=== PATIENT | female | born 1990 | race Caucasian/White ===

== ENCOUNTER 2016-07-15 12:51 | Emergency (ER) | payer MEDICAID ==
[2016-07-15 13:12] VITALS: TEMP 98.4
--- NOTE | 2016-07-15 13:43 | RAD ---
HISTORY: Palpations COMPARISON: No prior. TECHNIQUE: Chest PA and lateral FINDINGS: LUNGS: No active pulmonary disease. PLEURA: No significant pleural effusion identified. No pneumothorax apparent. CARDIOVASCULAR: Normal. OSSEOUS STRUCTURES: No significant abnormalities. VISUALIZED UPPER ABDOMEN: Normal. OTHER FINDINGS: None. IMPRESSION: No active disease.
[2016-07-15 13:44] LABS: RBC URINE < 1 /hpf (0-3); URINE BILIRUBIN NEGATIVE (NEGATIVE); URINE BLOOD NEGATIVE (NEGATIVE); URINE COLOR Yellow (YELLOW); URINE GLUCOSE (UA) NORMAL (Normal); URINE KETONE NEGATIVE (NEGATIVE); URINE LEUKOCYTE ESTERASE 1+ Leu/uL (Negative); URINE PROTEIN NEGATIVE (NEGATIVE); URINE UROBILINOGEN NORMAL mg/dL (0.2-1.0); WBC URINE 3 /hpf (0-5)
--- NOTE | 2016-07-15 13:52 | C.PDOC ---
History Of Present Illness 26 y/o female presents to the ED with complains of intermittent episodes of palpitations. Pt states her heart feels like it's pounding fast with dizziness, lightheadedness, SOB, and reflux associated. Symptoms are spontaneous, lasting a few minutes and then resolving. She also reports intermittent episodes of sharp stabbing chest pain. 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 Pt denies recent travel, leg pain or swelling, fever, vomiting or any other complaints. She has no cough or URI symptoms. She denies any cocaine or heroin use. Time Seen by Provider: 07/15/16 13:14 Chief Complaint (Nursing): Chest Pain History Per: Patient History/Exam Limitations: no limitations Onset/Duration Of Symptoms: Days, Intermittent Episodes Current Symptoms Are (Timing): Gone Severity: Moderate Exacerbating Factors: None Alleviating Factors: None Recent travel outside of the [place]: No Past Medical History Reviewed: Historical Data, Nursing Documentation, Vital Signs Vital Signs: Last Vital Signs Temp 98.4 F 07/15/16 12:58 Pulse 96 H 07/15/16 12:58 Resp 18 07/15/16 12:58 BP 128/73 07/15/16 12:58 Pulse Ox 99 07/15/16 14:31 - Medical History PMH: Asthma Family History: States: Unknown Family Hx - Social History Hx Alcohol Use: No Hx Substance Use: No - Immunization History Hx Influenza Vaccination: No Review Of Systems Except As Marked, All Systems Reviewed And Found Negative. Constitutional: Negative for: Fever Cardiovascular: Positive for: Chest Pain, Palpitations Respiratory: Positive for: Shortness of Breath. Negative for: Cough Gastrointestinal: Negative for: Vomiting Neurological: Positive for: Dizziness Physical Exam - Physical Exam Appears: Non-toxic, No Acute Distress Skin: Warm, Dry, No Rash Head: Atraumatic, Normacephalic Oral Mucosa: Moist Neck: Normal ROM, Supple Chest: Symmetrical Cardiovascular: Rhythm Regular, No Murmur Respiratory: Normal Breath Sounds, No Rales, No Rhonchi, No Wheezing Gastrointestinal/Abdominal: Normal Exam, Soft, No Tenderness Extremity: Normal ROM Extremity: Bilateral: Atraumatic Neurological/Psych: Oriented x3 ED Course And Treatment - Laboratory Results Result Diagrams: 07/15/16 14:09 07/15/16 14:09 Lab Interpretation: Normal ECG: Interpreted By Me ECG Rhythm: Sinus Tachycardia ECG Interpretation: No Acute Changes Rate From EC O2 Sat by Pulse Oximetry: 99 (on room air) Pulse Ox Interpretation: Normal - Radiology CXR: Viewed By Me, Read By Radiologist CXR Interpretation: Yes: No Acute Disease Progress Note: Plan: EKG, labs, IV fluids Reevaluation Time: 15:25 Reassessment Condition: Improved (Patient remains asymptomatic in the ED.) Disposition - Disposition Referrals: [facility] [Outside] Disposition: HOME/ ROUTINE Disposition Time: 15:28 Condition: IMPROVED Instructions: Palpitations (ED) - Clinical Impression Clinical Impression: Palpitations - Scribe Statement The provider has reviewed the documentation as recorded by the Patrick Kee Provider Attestation: All medical record entries made by the Kishoribe were at my direction and personally dictated by me. I have reviewed the chart and agree that the record accurately reflects my personal performance of the history, physical exam, medical decision making, and the department course for this patient. I have also personally directed, reviewed, and agree with the discharge instructions and disposition.
[2016-07-15 14:15] LABS: BASO % 0.2 % (0.0-2.0); EOS % 0.6 % (0.0-4.0); HEMATOCRIT 37.1 % (34.0-47.0); LYMPH # 1.3 K/uL (1.0-4.3); LYMPH % 17.8 % (20.0-40.0); MEAN CELL VOLUME 97.4 fL (81.0-99.0); MEAN CORPUSCULAR HEMOGLOBIN 32.2 pg (27.0-31.0); MEAN PLATELET VOLUME 8.3 fL (7.2-11.7); MONO # 0.6 K/uL (0.0-0.8); MONO % 8.5 % (0.0-10.0); RED CELL DISTRIBUTION WIDTH 13.5 % (11.5-14.5); WHITE BLOOD COUNT 7.2 K/uL (4.8-10.8)
[2016-07-15 14:27] LABS: POTASSIUM 3.7 mmol/L (3.6-5.2); SODIUM 143 mmol/L (132-148)
[2016-07-15 14:29] LABS: ALB/GLOB RATIO 1.4 (1.0-2.1); ALKALINE PHOSPHATASE 64 U/L (38-126); AST/SGOT 31 U/L (14-36); BILIRUBIN,TOTAL 0.2 mg/dL (0.2-1.3); CARBON DIOXIDE 26 mmol/L (22-30); GFR AFRICAN-AMERICAN > 60; TOTAL PROTEIN 7.3 g/dL (6.3-8.3)
[2016-07-15 14:30] LABS: ALT/SGPT 31 U/L (9-52); BLOOD UREA NITROGEN 11 mg/dL (7-17); CALCIUM 8.8 mg/dl (8.6-10.4); GLUCOSE,RANDOM 86 mg/dL (65-105)
[2016-07-15 14:31] LABS: CHLORIDE 105 mmol/L (98-107)
[2016-07-15 14:44] LABS: T3 UPTAKE 27.9 % (23.0-41.0); T4 8.44 ug/dL (5.5-11.0)
[2016-07-15 15:53] VITALS: BP 159/99; PULSE 76; RESP 16; O2SAT 98
--- NOTE | 2016-07-27 23:19 | CARD ---
APPROVED REPORT EKG Measurement Heart [id number] <Conclusion> Sinus tachycardia Otherwise normal ECG
== END 2016-07-15 15:52 | disposition home or self-care (01) ==
LOC: C.ER 12:51
DX: R00.2 Palpitations (principal)

== ENCOUNTER 2017-04-24 10:50 | Emergency (ER) | payer MEDICAID ==
[2017-04-24 11:04] VITALS: BP 117/83; PULSE 74; RESP 18; TEMP 98.3; O2SAT 99
--- NOTE | 2017-04-24 11:47 | C.PDOC ---
Time Seen by Provider: 04/24/17 11:25 Chief Complaint (Nursing): Cough, Cold, Congestion History Per: Patient Onset/Duration Of Symptoms: Days (3) Current Symptoms Are (Timing): Still Present Location Of Pain: Ear(s) Associated Symptoms: Fever, Sore Throat, Cough, Sputum, Nasal Congestion, Nausea Ear Symptoms: Left: Ear Pain Past Medical History Reviewed: Historical Data, Nursing Documentation, Vital Signs Vital Signs: Last Vital Signs Temp 98.3 F 04/24/17 11:03 Pulse 74 04/24/17 11:03 Resp 18 04/24/17 11:03 BP 117/83 04/24/17 11:03 Pulse Ox 99 04/24/17 11:03 - Medical History PMH: Asthma Family History: States: Unknown Family Hx - Social History Hx Tobacco Use: Yes Hx Alcohol Use: No Hx Substance Use: No - Immunization History Hx Influenza Vaccination: No Review Of Systems Except As Marked, All Systems Reviewed And Found Negative. Constitutional: Positive for: Fever, Malaise ENT: Positive for: Ear Pain (left), Nose Congestion, Throat Pain. Negative for : Ear Discharge Cardiovascular: Negative for: Chest Pain Respiratory: Positive for: Cough. Negative for: Shortness of Breath Gastrointestinal: Negative for: Vomiting, Abdominal Pain, Diarrhea Musculoskeletal: Negative for: Neck Pain, Back Pain Skin: Negative for: Rash Neurological: Negative for: Weakness, Numbness, Seizures, Altered Mental Status Physical Exam - Physical Exam Appears: Non-toxic, No Acute Distress Skin: Normal Color, Warm, Dry, No Rash Head: Atraumatic, Normacephalic Eye(s): bilateral: Normal Inspection, PERRL, EOMI Ear(s): Left: TM Erythema, TM Dull, Loss Of TM Landmarks, Right: Normal Oral Mucosa: Moist, No Drooling, No Trismus Throat: Erythema, No Exudate, No Drooling, No Mass Neck: Normal ROM, Supple Cardiovascular: Rhythm Regular Respiratory: Normal Breath Sounds, No Accessory Muscle Use Gastrointestinal/Abdominal: Soft, No Tenderness Back: No CVA Tenderness Extremity: Normal ROM Neurological/Psych: Oriented x3, Normal Speech, Normal Motor, Normal Sensation ED Course And Treatment O2 Sat by Pulse Oximetry: 99 Pulse Ox Interpretation: Normal Disposition Counseled Patient/Family Regarding: Diagnosis, Need For Followup, Rx Given, Smoking Cessation - Disposition Disposition: HOME/ ROUTINE Disposition Time: 11:47 Condition: STABLE Additional Instructions: Follow up with your doctor. Return to the ER if you develop high fever, shortness of breath, worsening of symptoms or if you have any other concerns. Prescriptions: Azithromycin [Zithromax] 1 dose PO DAILY #1 pkt Instructions: Cold Symptoms (ED), Otitis Media (ED) Forms: [employer] (Armenian) - Clinical Impression Clinical Impression: Upper respiratory infection, Otitis media of left ear
== END 2017-04-24 12:00 | disposition home or self-care (01) ==
LOC: C.ER 10:50
DX: H66.92 Otitis media, unspecified, left ear (principal); J06.9 Acute upper respiratory infection, unspecified; Z72.0 Tobacco use

== ENCOUNTER 2017-05-31 00:01 | Emergency (ER) | payer MEDICAID ==
--- NOTE | 2017-05-31 00:21 | C.PDOC ---
History Of Present Illness Pt felt lower lip swelling yesterday. took a benadryl and xyzal. swelling resolved. Now upper lip swelled, and pt took 2 benadryl , but no effect. Speaking in complete sentences, tolerating own secretions, no wheezing. Able to eat and drink. Unknown etiology Time Seen by Provider: 05/31/17 00:16 Chief Complaint (Nursing): Allergic Reaction History Per: Patient History/Exam Limitations: no limitations Onset/Duration Of Symptoms: Days Current Symptoms Are (Timing): Still Present Context: Other Possible Cause: Unknown Associated Symptoms: Swelling. denies: Trouble Swallowing, Dizziness, Chest Pain Home/EMS Treatment: Benadryl, Other (xyzal) Severity: Moderate Pain Scale Rating Of: 4 Recent travel outside of the [place]: No Additional History Per: Family Past Medical History Reviewed: Historical Data, Nursing Documentation, Vital Signs Vital Signs: Last Vital Signs Temp 98.5 F 05/31/17 04:03 Pulse 80 05/31/17 04:03 Resp 16 05/31/17 04:03 BP 104/34 L 05/31/17 04:03 Pulse Ox 97 05/31/17 06:01 - Medical History PMH: Asthma Family History: States: No Known Family Hx - Social History Hx Tobacco Use: Yes Hx Alcohol Use: No Hx Substance Use: No - Immunization History Hx Influenza Vaccination: No Review Of Systems Constitutional: Negative for: Fever, Chills Eyes: Negative for: Redness ENT: Positive for: Other (upper lip swelling). Negative for: Throat Pain Cardiovascular: Negative for: Chest Pain Respiratory: Negative for: Cough, Shortness of Breath, Wheezing Gastrointestinal: Negative for: Abdominal Pain Skin: Negative for: Rash, Bruising Neurological: Negative for: Weakness Psych: Negative for: Anxiety Physical Exam - Physical Exam Appears: Non-toxic Skin: Warm, Dry Head: Normacephalic Eye(s): bilateral: Normal Inspection Oral Mucosa: Moist Tongue: Normal Appearing, No Swelling Lips: Swelling (upper lip) Teeth: Normal Dentition Gingiva: Normal Appearing Throat: No Erythema, No Exudate, No Drooling Neck: Supple Chest: Symmetrical Cardiovascular: Rhythm Regular Respiratory: No Decreased Breath Sounds, No Rales, No Rhonchi, No Wheezing Gastrointestinal/Abdominal: Soft, No Tenderness, No Distention Extremity: Normal ROM Neurological/Psych: Oriented x3, Normal Speech, Normal Cognition ED Course And Treatment O2 Sat by Pulse Oximetry: 97 Pulse Ox Interpretation: Normal Progress Note: 1:19 am pt's upper lip seems slightly more swollen, even after solumedrol, pepcid and benadryl. continuing to speak in complete sentences, and not SOB or wheezing. 3:50 A lip still swollen, airway clear Critical Care Time - Critical Care Note Total Time (in mins): 30 Documented critical care: time excludes all time spent performing seperately billable procedures. Disposition Counseled Patient/Family Regarding: Studies Performed, Diagnosis - Disposition Disposition Time: 00:21 Condition: FAIR Forms: [facility] (Slovak) - Clinical Impression Clinical Impression: Allergic urticaria, Angioedema Physician Patient Turnover Patient Signed Over To: Shivani Ann Handoff Comments: pending re-eval and disposition
[2017-05-31] MEDS ORDERED: MethylPREDNISolone 40 mg Vial IVP STA (00:22)
[2017-05-31] MEDS ORDERED: DiphenhydrAMINE 50 mg/ml Inj IVP STA (00:25)
[2017-05-31] MEDS ORDERED: Sodium Chloride 0.9% 1,000 ML IV ONE (00:25)
[2017-05-31] MEDS ORDERED: Sodium Chloride 0.9% 1,000 ML ONE (00:31)
[2017-05-31] MEDS ORDERED: DiphenhydrAMINE 50 mg/ml Inj ONE (00:32)
[2017-05-31 08:15] VITALS: O2SAT 99
[2017-05-31 09:20] VITALS: BP 112/69; PULSE 70; RESP 18; TEMP 98.4
== END 2017-05-31 09:10 | disposition home or self-care (01) ==
LOC: C.ER 00:01
DX: L50.0 Allergic urticaria (principal)
CPT/HCPCS: 96361; 96374; 96375; 96376; 99285; J1200; J2920; J2930; J7040

== ENCOUNTER 2017-12-15 09:56 | Emergency (ER) | payer MEDICAID ==
[2017-12-15 10:05] VITALS: BMI 26.4
[2017-12-15 10:07] VITALS: TEMP 98.2; O2SAT 100
--- NOTE | 2017-12-15 10:32 | C.PDOC ---
History Of Present Illness 27 year old female presents to ED for evaluation of worsening, persistent headaches lasting 1 day s/p injury. Patient states he has been feeling off after toolbox accidentally fell onto the top of her head. Reports no LOC, initially headache was localized to the top of the head, took Tylenol with improvement. However, woke up this morning and headache was intensified with neck tightness. Denies other associated injures, fever, nausea, vomiting, and other associated symptoms. S/P HEAD INJURY YEST CO PERSIST COUGHLIN "FEELING OFF"/ PS TOOLBOX ACCID FELL ONTO TOP OF HEAD. NO LOC. +INITIAL COUGHLIN TO TOP, RELIEVED W TYLENOL. TODAY AWOKE W WORSE COUGHLIN, +NECK TIGHTNESS. NO NAUSEA. DENIES OTHER ASSOC INJ OR SX EXAM MILD DIST NONTOXIC HEENT NO SWELL, NO DEFORM, GEN TEND TOP OF SCALP; SKIN INTACT NECK SUPPLE NO FOCAL BONY TEND NEURO INTACT Time Seen by Provider: 12/15/17 10:29 Chief Complaint (Nursing): Headache History Per: Patient History/Exam Limitations: no limitations Onset/Duration Of Symptoms: Days Past Medical History Reviewed: Historical Data, Nursing Documentation, Vital Signs Vital Signs: Last Vital Signs Temp 98.2 F 12/15/17 10:05 Pulse 55 L 12/15/17 12:32 Resp 18 12/15/17 12:32 BP 144/73 12/15/17 12:32 Pulse Ox 100 12/15/17 13:55 - Medical History PMH: Asthma Family History: States: Unknown Family Hx - Social History Hx Tobacco Use: Yes Hx Alcohol Use: No Hx Substance Use: No - Immunization History Hx Influenza Vaccination: No Review Of Systems Except As Marked, All Systems Reviewed And Found Negative. (worsening) Constitutional: Positive for: Other. Negative for: Fever, Chills Gastrointestinal: Negative for: Nausea, Vomiting Musculoskeletal: Positive for: Neck Pain (neck tightness) Neurological: Positive for: Headache (worsening ) Physical Exam - Physical Exam Appears: Non-toxic, Other (mild distress) Skin: Normal Color, Warm, Dry, Other (skin intact) Head: Atraumatic, Normacephalic, No Swelling, Other (generalized tenderness to the top of the scalp, no deformities ) Eye(s): bilateral: Normal Inspection, PERRL, EOMI Ear(s): Left: Normal Oral Mucosa: Moist Neck: Normal ROM, Supple, Other (no focal bony tenderness) Chest: Symmetrical Cardiovascular: Rhythm Regular Respiratory: Other (NARD) Neurological/Psych: Oriented x3, Normal Speech, Normal Motor, Normal Sensation Gait: Steady ED Course And Treatment O2 Sat by Pulse Oximetry: 100 (RA) Pulse Ox Interpretation: Normal - CT Scan/US Head Other Rad Studies (CT/US): Interpreted By Me, Read By Radiologist CT/US Interpretation: FINDINGS: HEMORRHAGE: No intracranial hemorrhage. BRAIN : No mass effect or edema. No atrophy or chronic microvascular ischemic changes. VENTRICLES: No hydrocephalus. CALVARIUM: Unremarkable. PARANASAL SINUSES: Unremarkable as visualized. No significant inflammatory changes. MASTOID AIR CELLS: Unremarkable as visualized. No inflammatory changes. OTHER FINDINGS: None. IMPRESSION: No acute intracranial pathology identified. Medical Decision Making Medical Decision Making: Plan: --CT Head without contrast --Reglan --Tylenol Progress/Update: Patient stable for discharge home. Prescribed Reglan. Disposition Counseled Patient/Family Regarding: Studies Performed, Diagnosis, Need For Followup, Rx Given - Disposition Referrals: [facility] [Outside] [facility] [Outside] Disposition: HOME/ ROUTINE Disposition Time: 12:07 Condition: IMPROVED Prescriptions: Metoclopramide [Reglan] 1 tab PO TID PRN #25 tab PRN Reason: Nausea/Vomiting Instructions: Minor Head Injury (DC) Forms: [facility] (Swiss), Work Excuse - Clinical Impression Clinical Impression: Concussion syndrome, Minor head injury - Scribe Statement The provider has reviewed the documentation as recorded by the Scribe (Molly Mccullough) Provider Attestation: All medical record entries made by the Scribe were at my direction and personally dictated by me. I have reviewed the chart and agree that the record accurately reflects my personal performance of the history, physical exam, medical decision making, and the department course for this patient. I have also personally directed, reviewed, and agree with the discharge instructions and disposition.
--- NOTE | 2017-12-15 11:55 | CT ---
Date of service: 12/15/2017 PROCEDURE: CT HEAD WITHOUT CONTRAST. HISTORY: TRAUMA COMPARISON: None available. TECHNIQUE: Axial computed tomography images were obtained through the head/brain without intravenous contrast. Radiation dose: Total exam DLP = 924.79 mGy-cm. This CT exam was performed using one or more of the following dose reduction techniques: Automated exposure control, adjustment of the mA and/or kV according to patient size, and/or use of iterative reconstruction technique. FINDINGS: HEMORRHAGE: No intracranial hemorrhage. BRAIN: No mass effect or edema. No atrophy or chronic microvascular ischemic changes. VENTRICLES: No hydrocephalus. CALVARIUM: Unremarkable. PARANASAL SINUSES: Unremarkable as visualized. No significant inflammatory changes. MASTOID AIR CELLS: Unremarkable as visualized. No inflammatory changes. OTHER FINDINGS: None. IMPRESSION: No acute intracranial pathology identified.
[2017-12-15 12:32] VITALS: BP 144/73; PULSE 55; RESP 18
== END 2017-12-15 12:32 | disposition home or self-care (01) ==
LOC: C.ER 09:56
DX: F07.81 Postconcussional syndrome (principal)

== ENCOUNTER 2018-01-07 12:23 | Emergency (ER) | payer MEDICAID ==
[2018-01-07 12:23] VITALS: BMI 26.4
[2018-01-07 12:46] VITALS: TEMP 98.3
--- NOTE | 2018-01-07 13:37 | C.PDOC ---
History Of Present Illness 27-year-old female, PMHx includes multiple food and medication allergies, presents to the emergency department for evaluation of pleuritic rash that she gradually developed diffusely over body x1 week. Denies any known recent exposure to allergen, recent illness, fever, chills, throat swelling or tightening, CP, SOB, dyspnea, wheezing, SOB, abd. pain, n/V, denies recent travel or known sick contact. Ambulate to Ed for evaluation, not in resp. distress. Time Seen by Provider: 01/07/18 12:49 Chief Complaint (Nursing): Abnormal Skin Integrity History Per: Patient History/Exam Limitations: no limitations Past Medical History Reviewed: Historical Data, Nursing Documentation, Vital Signs Vital Signs: Last Vital Signs Temp 98.3 F 01/07/18 12:40 Pulse 68 01/07/18 12:40 Resp 20 01/07/18 12:40 BP 100/65 01/07/18 12:40 Pulse Ox 99 01/07/18 12:40 - Medical History PMH: Asthma Family History: States: No Known Family Hx - Social History Hx Tobacco Use: Yes Hx Alcohol Use: No Hx Substance Use: No - Immunization History Hx Tetanus Toxoid Vaccination: No Hx Influenza Vaccination: No Hx Pneumococcal Vaccination: No Review Of Systems Constitutional: Negative for: Fever, Chills Cardiovascular: Negative for: Chest Pain Respiratory: Negative for: Shortness of Breath Gastrointestinal: Negative for: Nausea, Vomiting Skin: Positive for: Rash Physical Exam - Physical Exam Appears: Well (anular slightly erythmeatous dry patyches to bilateral hands, legs and face), Non-toxic, No Acute Distress Skin: Warm, Dry, Rash (small annular erythematous rash over B/L hands, upper arm, face, B/L thighs and lower abdominal wall. No evidence of cellulitis or proximal streaking.) Head: Normacephalic Eye(s): bilateral: PERRL Nose: No Flaring, No Discharge Oral Mucosa: Moist, No Drooling Tongue: No Swelling Lips: No Swelling Throat: No Erythema, No Drooling, Other (uvula midline, no edema.) Neck: Supple Chest: Symmetrical Cardiovascular: Rhythm Regular, No Murmur, No JVD Respiratory: No Accessory Muscle Use, No Stridor, No Wheezing Extremity: Normal ROM, No Deformity, No Swelling Neurological/Psych: Oriented x3, Normal Speech ED Course And Treatment O2 Sat by Pulse Oximetry: 99 Pulse Ox Interpretation: Normal (RA) Progress Note: On re-eval, pt is afebrile, hemodynamicaly stable. Non-toxic. PulsOEx 99% RA. ENT: no acute findings. uvula midline, no edema. Neck: Supple, (-) meningeal sign, (-) JVD, (-) carotid bruits. Lungs: CTA B/L, BS equal B/L. Neurologicaly intact. Skin: exam c/w urticaria r/o eczema. Pt advised and ref. to f/u with PMD, Allergy, Derm in 1-2 days for re-eavl. return to ED if any worsening or new changes. 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 return to ED if any worsening or new changes. Prescriptions: DiphenhydrAMINE [Benadryl] 25 mg PO BID #10 cap Famotidine [Pepcid] 20 mg PO BID #10 tab Prednisone [Deltasone] 40 mg PO DAILY #6 tablet Instructions: Skin Rash, Hives (DC) Forms: [employer] (Sinhala) - Clinical Impression Clinical Impression: Allergic urticaria - Scribe Statement The provider has reviewed the documentation as recorded by the Scribe (Stew Torres) All medical record entries made by the Scribe were at my direction and personally dictated by me. I have reviewed the chart and agree that the record accurately reflects my personal performance of the history, physical exam, medical decision making, and the department course for this patient. I have also personally directed, reviewed, and agree with the discharge instructions and disposition.
[2018-01-07 13:56] VITALS: BP 104/68; PULSE 72; RESP 18
[2018-01-07 13:57] VITALS: O2SAT 99
== END 2018-01-07 13:55 | disposition home or self-care (01) ==
LOC: C.ER 12:23
DX: L50.0 Allergic urticaria (principal); Z87.891 Personal history of nicotine dependence